=== PATIENT | male | born 1985 | race Hispanic/Latino ===

== ENCOUNTER 2025-02-12 22:21 | Emergency (ER) | payer SELFPAY ==
--- NOTE | ~2025-02-12 | CT_ITS ---
CT of the Abdomen and Pelvis: Indication: Abdominal pain Technique: 2.5 mm axial scans were obtained through the abdomen and pelvis following intravenous adm inistration of 100 cc of Omnipaque 350. Dose reduction technique was used on this scan by utilizing a utomated exposure control and iterative reconstruction technique. The dose-length product (DLP) was 7 12.05 mGy-cm. Findings: Scans through the lung bases demonstrate 5 mm left basilar pulmonary nodule (axial image 2 7).. The liver, spleen, pancreas, gallbladder, adrenals and kidneys are within normal limits. No evidence of aortic aneurysm. No lymphadenopathy. No bowel obstruction or bowel wall thickening. There is no evidence to suggest acute appendicitis. Images through the pelvis were performed. Urinary bladder unremarkable. No pelvic mass seen. No ascit es. Impression: No acute abnormality. 5 mm left basilar pulmonary nodule. According to Fleischner Society criteria, for a low-risk patient, no further follow-up required. For a high-risk patient, consider 12 month follow-up CT. Reviewed, dictated and finalized at location . Impression: No acute abnormality. 5 mm left basilar pulmonary nodule. According to Fleischner Society criteria, f or a low-risk patient, no further follow-up required. For a high-risk patient, consider 12 month follow-up CT.
[2025-02-12 22:23] VITALS: BP 149/97; PULSE 65; RESP 22; TEMP 36.6; O2SAT 100
[2025-02-12] MEDS: LACTATED RINGERS 1,000 ML 999 ML IV CONT (22:36)
[2025-02-12] MEDS: ONDANSETRON INJ 4 MG/2 ML VIAL IV PUSH (22:37)
[2025-02-12] MEDS: HYDROmorphone HCL INJ (*CRX) 2 MG/ML VIAL 1 MG IV PUSH ×2 (22:37→23:40)
[2025-02-12 22:39] LABS: Basophils Absolute Auto 0.1 K/mm3 (0.0-0.1); Basophils Percent Auto 0.3 % (0.2-1.2); Eosinophils Absolute Auto 0.2 K/mm3 (0-0.3); Eosinophils Percent Auto 1.5 % (0-4.4); Hematocrit 46.7 % (42.0-52.0); Hemoglobin 15.4 g/dL (14.0-18.0); Immature Granulocyte Absolute 0.12 K/mm3 (0.00-0.031); Immature Granulocyte Percent A 0.7 % (0-0.5); Lymphocytes Absolute Auto 2.75 K/mm3 (0.9-3.2); Lymphocytes Percent Auto 16.9 % (18.3-44.2); Mean Corpuscular Hemoglobin 27.9 pg (26-34); Mean Corpuscular Volume 84.8 fl (80-100); Mean Platelet Volume 8.9 fl (7.4-10.4); Monocytes Absolute Auto 0.8 K/mm3 (0.1-0.6); Neutrophils Absolute Auto 12.3 K/mm3 (1.3-6.7); Neutrophils Percent Auto 75.6 % (45.5-73.1); Platelet Count Result 317 k/mm3 (150-375); Red Blood Count 5.51 M/mm3 (4.6-6.20); Red Cell Distribution Width 12.8 % (11.5-14.5); White Blood Count 16.3 K/mm3 (4.5-10.0)
--- NOTE | 2025-02-12 22:41 | ED_ITS ---
HPI - General Adult General Chief complaint: Abdominal Pain Stated complaint: abd pain Time Seen by Provider: 02/12/25 22:26 History of Present Illness HPI narrative: 40-year-old male who denies any significant past medical history presents emergency department complaining of right upper quadrant pain that is been ongoing for the last 2 hours. Patient reports symptoms started after he was eating dinner. Patient states he had chicken and pork chops. Patient states he does have intermittent pain similar to this but not as bad. Patient does have nausea and vomiting. Patient states he is not diabetic. Patient has no known issues with his gallbladder. Patient denies any prior abdominal surgical history. Patient is not on blood thinners. Related Data Allergies Allergy/AdvReac Type Severity Reaction Status Date / Time No Known Allergies Allergy Verified 02/12/25 22:26 Review of Systems 2 Review of Systems: All systems reviewed & are unremarkable except as noted in HPI and below Exam 2 Narrative: APPEARANCE: Uncomfortable. HEAD: normocephalic, atraumatic. EYES: PERRLA/EOMI, conjunctivae clear. NOSE: Normal no drainage EARS:TMS clear with good light reflex. THROAT: Pharynx clear, no exudate. NECK: Supple. No adenopathy, no masses. RESPIRATORY: Airway patent, respirations nonlabored. Clear to auscultation bilaterally, no rales, rhonchi, wheezing. CARDIOVASCULAR: Regular rate and rhythm without murmurs rubs or gallops. ABDOMINAL: Right upper quadrant tenderness to palpation MUSCULOSKELETAL: Moves all extremities. Strength/ROM intact, No edema, No calf tenderness. NEURO: Alert. Cranial nerves II through XII intact. Good gait. Good coordination SKIN: Warm, dry. Normal Color Course Vital Signs Vital signs: Vital Signs Temperature 97.9 F 02/12/25 22:23 Pulse Rate 65 02/12/25 22:23 Respiratory Rate 22 H 02/12/25 22:23 Blood Pressure 149/97 H 02/12/25 22:23 Pulse Oximetry 100 02/12/25 22:23 Oxygen Delivery Room Air 02/12/25 22:23 Temperature 97.9 F 02/12/25 22:23 Pulse Rate 62 02/13/25 01:22 Respiratory Rate 16 02/13/25 01:22 Blood Pressure 135/97 H 02/13/25 01:22 Pulse Oximetry 97 02/13/25 01:22 Oxygen Delivery Room Air 02/12/25 22:23 Medical Decision Making MDM Narrative Medical decision making narrative: 40-year-old male present to the emergency department for evaluation for upper quadrant abdominal pain that is significantly worse than previous episodes of right upper quadrant abdominal pain. Patient is currently afebrile but does have a leukocytosis of 16.3 and hemoglobin of 15.4. Patient has no significant abnormalities on his CMP with normal T bili AST ALT alk-phos and normal lipase. CT scan showed that the gallbladder is distended at time of imaging but otherwise unremarkable. No cholelithiasis. No intra-abdominal inflammatory stranding. No diverticulitis mild amount of intra-abdominal lymphadenopathy is present. Left lower lobe pulmonary nodules present. Patient's pain is poorly controlled after 2 mg of IV Dilaudid. Patient was offered observation emergency department and ultrasound the morning to further evaluate the gallbladder. Patient was also offered discharge to home with medications for pain control and outpatient ultrasound at 7:30 a.m. in the morning. On re-evaluation patient states he does feel improved and prefers to have the ultrasound in the morning and to have outpatient follow-up with surgery. Differential Diagnosis Differential Diagnosis: Colitis, diverticulitis, appendicitis, cholecystitis, biliary colic Vital Signs Vital Signs: Vital Signs Temperature 97.9 F 02/12/25 22:23 Pulse Rate 65 02/12/25 22:23 Respiratory Rate 22 H 02/12/25 22:23 Blood Pressure 149/97 H 02/12/25 22:23 Pulse Oximetry 100 02/12/25 22:23 Oxygen Delivery Room Air 02/12/25 22:23 Temperature 97.9 F 02/12/25 22:23 Pulse Rate 62 02/13/25 01:22 Respiratory Rate 16 02/13/25 01:22 Blood Pressure 135/97 H 02/13/25 01:22 Pulse Oximetry 97 02/13/25 01:22 Oxygen Delivery Room Air 02/12/25 22:23 Lab Data Lab results reviewed: Yes I reviewed the patient's lab results. 02/12/25 22:33 02/12/25 22:48 Labs: Lab Results 02/12/25 02/12/25 Range/Units 22:33 22:48 WBC 16.3 H (4.5-10.0) K/mm3 RBC 5.51 (4.6-6.20) M/mm3 Hgb 15.4 (14.0-18.0) g/dL Hct 46.7 (42.0-52.0) % MCV 84.8 (80-100) fl MCH 27.9 (26-34) pg MCHC 33.0 (32-36) g/dl RDW 12.8 (11.5-14.5) % Plt Count 317 (150-375) k/mm3 MPV 8.9 (7.4-10.4) fl Immature Gran % (Auto) 0.7 H (0-0.5) % Neut % (Auto) 75.6 H (45.5-73.1) % Lymph % (Auto) 16.9 L (18.3-44.2) % [place] % (Auto) 5.0 (2.6-8.5) % Eos % (Auto) 1.5 (0-4.4) % Baso % (Auto) 0.3 (0.2-1.2) % Lymph # (Auto) 2.75 (0.9-3.2) K/mm3 [place] # (Auto) 0.8 H (0.1-0.6) K/mm3 Eos # (Auto) 0.2 (0-0.3) K/mm3 Baso # (Auto) 0.1 (0.0-0.1) K/mm3 Abs Immat Gran (auto) 0.12 H (0.00-0.031) K/mm3 Absolute Neuts (auto) 12.3 H (1.3-6.7) K/mm3 Absolute Nucleated RBC 0.000 (0.0-0.012) K/mm3 Nucleated RBC % 0.0 (0.0-0.2) % Sodium 137 (137-145) mmol/L Potassium 3.5 (3.4-5.0) mmol/L Chloride 97 L (98-107) mmol/L Carbon Dioxide 27 (22-30) mmol/L Anion Gap 13 H (4-12) mmol/L BUN 16 (9-20) mg/dL Creatinine 1.03 1.20 (0.7-1.3) mg/dL Estim Creat Clear Calc 88 76 ml/min Estimated GFR > 60 > 60 (59 - ) Glucose 147 H (65-110) mg/dL Calcium 9.2 (8.4-10.2) mg/dL Total Bilirubin 0.5 (0.2-1.3) mg/dL AST 27 (17-59) U/L ALT 19 (6-50) U/L Alkaline Phosphatase 109 (38-126) U/L Total Protein 8.0 (6.3-8.2) g/dL Albumin 4.8 (3.5-5.1) g/dL Lipase 83 (23-300) U/L Discharge Plan Discharge Clinical Impression: Abdominal pain, acute, right upper quadrant Patient Disposition: Home Condition: Stable Instructions: Antibiotic Form, Biliary Colic (ED), Low Fat Diet (ED), Clear Liquid Diet (ED), Abdominal Pain (ED) Additional Instructions: Clear liquid diet for the next 1-3 days. Zofran as needed for nausea control and [place] as needed for pain control. Have close follow-up with surgery as outpatient. An ultrasound is being ordered for 7:00 a.m., present to the imaging center entrance at the front of the hospital. Patient Language: Serbian Prescriptions: New hydrocodone-acetaminophen 5-325 mg tablet 1 tablet PO Q12H PRN (Reason: pain) Qty: 14 0RF ondansetron 4 mg tablet,disintegrating 4 mg PO Q8H PRN (Reason: nausea and vomiting) Qty: 14 0RF Other Ambulatory Orders: US abdomen limited (Routine) Timeframe: 3 Days Location: Determined by Patient Ordered By: German Ca Follow-up/Referrals: PHYSICIAN,[employer] [Primary Care Provider] - Cj Gill MD [Physician] -
[2025-02-12 22:49] LABS: Alanine Aminotransferase 19 U/L (6-50); Albumin Level 4.8 g/dL (3.5-5.1); Alkaline Phosphatase 109 U/L (38-126); Anion Gap 13 mmol/L (4-12); Aspartate Amino Transferase 27 U/L (17-59); Bilirubin,Total 0.5 mg/dL (0.2-1.3); Blood Urea Nitrogen 16 mg/dL (9-20); Calcium 9.2 mg/dL (8.4-10.2); Carbon Dioxide 27 mmol/L (22-30); Chloride 97 mmol/L (98-107); Estimated CRCL calculation 88 ml/min; Estimated Glomerular Filt Rate > 60; Glucose 147 mg/dL (65-110); Lipase 83 U/L (23-300); Potassium 3.5 mmol/L (3.4-5.0); Sodium 137 mmol/L (137-145)
[2025-02-12 22:51] LABS: Estimated CRCL calculation 76 ml/min; Estimated Glomerular Filt Rate > 60
[2025-02-12 23:44] VITALS: BP 143/106; PULSE 57; RESP 14; O2SAT 100
[2025-02-13] MEDS: HYDROcodone/acetaminophen (*CRX) 7.5-325 MG TABLET 1 TAB PO (01:00)
[2025-02-13] MEDS: HYDROmorphone HCL INJ (*CRX) 2 MG/ML VIAL 0.5 MG IV PUSH (01:00)
[2025-02-13 01:22] VITALS: BP 135/97; PULSE 62; RESP 16; O2SAT 97
== END 2025-02-13 01:28 | disposition home or self-care (01) ==
PROVIDERS: Emergency Provider Emergency Medicine
DX: R10.11 Right upper quadrant pain (principal)
CPT/HCPCS: 36415; 74177; 80053; 83690; 85025; 96361; 96374; 96375; 99284; A9270; J1171; J2405; J7120; Q9967

== ENCOUNTER 2025-02-13 07:12 | Outpatient (CLI) | payer SELFPAY ==
--- NOTE | ~2025-02-13 | US_ITS ---
Limited ABDOMINAL ULTRASOUND (Doppler ultrasound interrogation techniques used as needed for this exa m.) Ordering provider: German Ca MD History: . R10.11 - Right upper quadrant pain . Comparison: None. FINDINGS: PANCREAS: Not well visualized. PORTAL VEIN: Hepatopedal flow demonstrated. LIVER: Normal size and echotexture. Measured 17.8 cm. No focal hepatic lesions or perihepatic fluid c ollections are identified. BILIARY DUCTS: No intra or extrahepatic biliary dilation. Common bile duct measures 4.20 mm in diamet er which is normal for patient's age. GALLBLADDER: Normal. No stones, sludge, gallbladder wall thickening or pericholecystic fluid. Wall th ickness is 1.9 mm. Negative sonographic White's sign. FREE FLUID: None visualized within the upper abdomen. IMPRESSION: normal limited abdominal ultrasound. Reviewed, dictated and finalized at location A.
== END 2025-02-13 07:13 | disposition home or self-care (01) ==
PROVIDERS: PCP Surgery; Visit Provider Emergency Medicine
DX: R01.1 Cardiac murmur, unspecified (principal)
CPT/HCPCS: 76705